=== PATIENT | male | born 1940 | race Caucasian/White ===

== ENCOUNTER → 2017-08-05 | Day surgery (SDC) | payer MEDICARE ==
[~2017-08-05] VITALS: Ht 177.8 cm; Wt 90.0 kg
[~2017-08-05] MED LIST: ACET25TA4 PO; BACITRACIN TOP OINT 15 GM TUBE ONE; BUPIVACAINE/EPINEPHRINE 0.25% PF 30 ML VIAL ONE; CHLORHEXIDINE GLUCONATE 2 % 1 PACK (2 CLOTHS) TOPICAL PRN; DOXA1TAB34 PO; LACTATED RINGER'S 1000 ML IV PRN; LIDOCAINE 1%/EPINEPHrine 1:100,000 SOLN 50 ML VIAL ONE; METOPROLOL TARTRATE 25 MG TAB PO PRN; MULT-65 PO; NEOMYCIN/POLYMYXIN 1 ML G.U. IRRIGANT ONE; OMEP20TA93 PO; POVIDONE IODINE 5% (ANTISEPSIS KIT) 4 APPLICATIONS EACH NARE PRN; SODIUM CHLORID 0.9% 500 ML IV PRN; TRIAMCINOLONE ACETONIDE 40 MG/ML VIAL ONE; ceFAZolin 1,000 MG/NS 100 ML IV SCH; fentaNYL CITRATE 250 MCG/5 ML AMP ONE
[2017-08-05 07:03] LABS: HEMATOCRIT 47.4 % (39.0-51.0); HEMOGLOBIN 15.3 GM/DL (13.0-17.0); MEAN CELL VOLUME 89.6 FL (80.0-100.0); MEAN CORPUSCULAR HEMOGLOBIN 28.9 PG (27.0-34.0); MEAN CORPUSCULAR HGB CONC 32.2 % (32.0-36.0); MEAN PLATELET VOLUME 8.7 FL (7.0-11.0); PLATELET COUNT 234 TH/MM3 (150-450); RED BLOOD COUNT 5.29 MIL/MM3 (4.50-5.90); RED CELL DISTRIBUTION WIDTH 12.2 % (11.6-17.2)
[2017-08-05 09:10] VITALS: PULSE 76; TEMP 97.7
[2017-08-05 09:30] VITALS: BP 126/71; PULSE 74; RESP 16; O2SAT 94
--- NOTE | 2017-08-05 09:32 | EKG ---
Date Performed: 08/05/2017 Time Performed: 07:14:07 PTAGE: 77 years EKG: Sinus rhythm NORMAL ECG NO PREVIOUS TRACING DOCTOR: George Swartz Interpretating Date/Time 08/05/2017 09:29:08
--- NOTE | 2017-08-05 16:49 | PD.OP ---
Operative Report Date of Surgery: Aug 05, 2017 Preoperative Diagnosis: (1) Melanoma of ear Postoperative Diagnosis: (1) Melanoma of ear Procedure: Wide local excision of ear melanoma (79577) Surgeon: Tamir Adams Bucket Chucker(s): . Operation and Findings: This 77-year-old male who presented to clinic with a biopsy-proven left ear melanoma in situ. Risks benefits and alternative treatments were discussed. The patient elected to assume the risks of wide local excision. Informed consent was therefore obtained. The patient was marked in the preoperative holding day. The patient was taken to the operating room. After the smooth induction of general anesthesia, the lesion was outlined. A 5 mm circumferential margin was drawn around the lesion. The surgical site was instilled with quarter percent Marcaine with epinephrine. Following this the surgical site was prepped and draped in the usual sterile fashion. The skin lesion was excised according to the markings. The specimen was marked and sent for permanent pathology. This left a defect roughly 4 cm in craniocaudal dimension and 3 cm in transverse dimension. There is no exposed cartilage. Hemostasis was obtained. The wound was dressed with bacitracin and Xeroform which was sewn in place. All needle sponge and instrument counts were correct 2. The patient was awoken from anesthesia and arrive stable and doing well to the PACU. Tamir Adams MD Aug 05, 2017 16:48
== END | disposition home or self-care (01) ==
LOC: PHSDC 06:16
PROVIDERS: ATTEND Student in an Organized Health Care Education/Training Program
DX: D03.22 Melanoma in situ of left ear and external auricular canal (principal); L57.0 Actinic keratosis; Z01.810 Encounter for preprocedural cardiovascular examination
CPT/HCPCS: 00300; 11644; 36415; 85027; 88305; 93005; J0690; J3010; J7120; J3301

== ENCOUNTER → 2017-08-12 | Day surgery (SDC) | payer MEDICARE ==
[~2017-08-12] VITALS: Ht 177.8 cm; Wt 86.5 kg
[~2017-08-12] MED LIST changes: +BUPIVACAINE HCL PF 0.25% 30 ML VIAL ONE; +BUPIVACAINE/EPINEPHRINE 0.5% PF 30 ML VIAL ONE; +DEXAMETHASONE SOD PHOS 4 MG/ML VIAL IV ONE; +LIDOCAINE HCL 1% PF 5 ML SYRINGE OTHER ONE; -NEOMYCIN/POLYMYXIN 1 ML G.U. IRRIGANT ONE; +ONDANSETRON HCL 4 MG/2 ML VIAL IV PUSH ONE; +PHENYLEPH/NS 1000 MCG/10 ML SYR IV ONE; +PROPOFOL 200 MG/20 ML AMP IV ONE; -TRIAMCINOLONE ACETONIDE 40 MG/ML VIAL ONE; -ceFAZolin 1,000 MG/NS 100 ML IV SCH; +ceFAZolin INJ 1,000 MG VIAL ONE
[2017-08-12 10:34] VITALS: PULSE 72
[2017-08-12 12:00] VITALS: BP 128/77; PULSE 76; RESP 16; TEMP 98.2; O2SAT 98
--- NOTE | 2017-08-12 19:21 | PD.OP ---
Operative Report Date of Surgery: Aug 12, 2017 Preoperative Diagnosis: (1) Ear wound (2) Melanoma of ear Postoperative Diagnosis: (1) Ear wound (2) Melanoma of ear Procedure: Excision of additional margins (89226) Formation of direct pedicle to ear (31732) Surgeon: Tamir Adams Financial Data Analyst(s): . 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 The patient underwent wide local excision with 5 mm margins, appropriate for an in situ lesion, last week. The patient's permanent pathology however revealed malignant melanoma with a depth of invasion of 0.75 mm. As such the patient was advised to undergo an additional 5 mm margin excision. Given that the previous margins were negative , it was felt to be medically safe for the patient to undergo the first stage of a postauricular flap reconstruction at this time. Risks benefits and alternative treatments were discussed. All questions were answered. The patient expressed understanding. Informed consent was obtained. The patient was marked in the preoperative holding bay. Antibiotics were given on-call to the operating room. The patient was taken to the operating room. All pressure points were padded. Quarter percent Marcaine with epinephrine was instilled to the ear and the adjacent area of the planned postauricular flap. The surgical site was prepped and draped in usual sterile fashion. An additional 5 mm margin surrounding the ear wound was marked, excised, and sent for permanent pathology. Following this a template of the ear wound was made. This was transposed onto the postauricular skin, leaving a 1 cm area of intact posterior ear skin, thereby the posterior ear wound from the postauricular flap donor site wound. The postauricular flap was then undermined until it was able to be transposed without tension. Hemostasis was obtained. The flap was then sutured to the auricle with interrupted 4-0 nylons in a horizontal mattress fashion, thereby achieving excellent epidermal eversion. The wound was dressed with copious bacitracin and Xeroform followed by gauze ABDs and a craniotomy stockinette. All needle sponge and instrument counts were correct 2. The patient was awoken from anesthesia and arrived stable and doing well to the PACU. Tamir Adams MD Aug 12, 2017 19:21
== END | disposition home or self-care (01) ==
LOC: PHSDC 06:11
PROVIDERS: ATTEND Student in an Organized Health Care Education/Training Program
DX: C43.22 Malignant melanoma of left ear and external auricular canal (principal); M79.89 Other specified soft tissue disorders
CPT/HCPCS: 00300; 11444; 15576; 88305; J0690; J1100; J2370; J2405; J3010; J7120

== ENCOUNTER → 2017-09-02 | Day surgery (SDC) | payer MEDICARE ==
[~2017-09-02] VITALS: Ht 177.8 cm; Wt 90.2 kg
[~2017-09-02] MED LIST changes: +ACETAMINOPHEN/HYDROcodone 325 MG/5 MG TAB PO PRN; +BUPIVACAINE HCL PF 0.5% 30 ML VIAL ONE; -BUPIVACAINE/EPINEPHRINE 0.25% PF 30 ML VIAL ONE; -BUPIVACAINE/EPINEPHRINE 0.5% PF 30 ML VIAL ONE; +DO NOT ADM ANY ANTICOAGULANT DRUGS PRN; +LACTATED RINGER'S 1000 ML INJ 2,000 ML IV ONE; +LIDOCAINE 1%/EPINEPHrine 1:100,000 SOLN 30 ML VIAL ONE; -LIDOCAINE 1%/EPINEPHrine 1:100,000 SOLN 50 ML VIAL ONE; +ONDANSETRON HCL 4 MG/2 ML VIAL IV ONE; -ONDANSETRON HCL 4 MG/2 ML VIAL IV PUSH ONE; -PHENYLEPH/NS 1000 MCG/10 ML SYR IV ONE; +POVIDONE IODINE 10% OINT 30 GM TUBE ONE; +ceFAZolin 1,000 MG/NS 100 ML IV SCH; -ceFAZolin INJ 1,000 MG VIAL ONE; +ePHEDrine/NS 25 MG/5 ML SYRINGE IV ONE; -fentaNYL CITRATE 250 MCG/5 ML AMP ONE
[2017-09-02 13:40] LABS: AUTOMATED NEUTROPHIL # 4.5 TH/MM3 (1.8-7.7); BASOPHIL % 0.5 % (0.0-2.0); EOSINOPHIL # 0.1 TH/MM3 (0-0.4); EOSINOPHIL % 2.1 % (0.0-4.0); HEMATOCRIT 41.7 % (39.0-51.0); HEMOGLOBIN 14.2 GM/DL (13.0-17.0); LYMPH % 18.6 % (9.0-44.0); LYMPHOCYTE # 1.2 TH/MM3 (1.0-4.8); MEAN CELL VOLUME 88.4 FL (80.0-100.0); MEAN CORPUSCULAR HGB CONC 33.9 % (32.0-36.0); MEAN PLATELET VOLUME 8.9 FL (7.0-11.0); MONO % 11.1 % (0.0-8.0); MONOCYTE # 0.7 TH/MM3 (0-0.9); NEUT % 67.7 % (16.0-70.0); PLATELET COUNT 212 TH/MM3 (150-450); RED BLOOD COUNT 4.72 MIL/MM3 (4.50-5.90); RED CELL DISTRIBUTION WIDTH 13.1 % (11.6-17.2); WHITE BLOOD COUNT 6.7 TH/MM3 (4.0-11.0)
[2017-09-02 17:30] VITALS: BP 157/80; PULSE 83; RESP 16; TEMP 97.5; O2SAT 97
--- NOTE | 2017-09-04 20:55 | PD.OP ---
Operative Report Date of Surgery: Sep 02, 2017 Preoperative Diagnosis: (1) Ear wound (2) Melanoma of ear Postoperative Diagnosis: (1) Melanoma of ear (2) Ear wound Procedure: Inset of post auricular flap (23893) Surgeon: Tamir Adams Conditioning Machine Operator(s): . 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 Following wide local excision, he was left with a large wound and exposed cartilage. He is now status post first stage of a postauricular flap and will undergo inset today. Informed consent was obtained. Surgical site was marked in preoperative holding bay. Antibiotics were given on-call to the operating room. Patient was taken to the operating room. A surgical timeout was performed. After the smooth induction of general anesthesia, the surgical site was shaved with clippers. Quarter percent Marcaine plain was instilled around the pedicle of the flap and in a ring block of the auricle. The pedicle was incised. The donor flap was again raised until it was able to be reapproximated to the red cliff postauricular skin. Hemostasis was ensured. The donor site was reapproximated using interrupted 3- 0 Vicryl followed by running 6-0 Prolene. Attention was then turned to the recipient site. The flap attached to the auricle was thinned posteriorly and sutured to the red cliff posterior ear skin with interrupted 4-0 nylon's. Anteriorly a small incision roughly 5 mm was carried along the anterior aspect of the helix. The skin was mobilized from the anterior aspect of the helical cartilage. This allowed for tension-free approximation of the helical scan to the transferred flap tissue without notching. This was closed with interrupted 4O nylons in a horizontal mattress fashion. Surgical site was cleaned. Both incision lines were dressed with bacitracin Xeroform gauze dry gauze ABDs and a craniotomy stockinette. The patient was awoken from anesthesia and arrived stable and doing well to the PACU. All needle sponge and instrument counts were correct 2 Tamir Adams MD Sep 04, 2017 20:55
== END | disposition home or self-care (01) ==
LOC: HSDC 11:44
PROVIDERS: ATTEND Student in an Organized Health Care Education/Training Program
DX: Z48.1 Encounter for planned postprocedural wound closure (principal); D03.22 Melanoma in situ of left ear and external auricular canal; G47.30 Sleep apnea, unspecified; K21.9 Gastro-esophageal reflux disease without esophagitis; Z01.818 Encounter for other preprocedural examination
CPT/HCPCS: 00300; 15630; 85025; J0690; J1100; J2405; J3010; J7120